=== PATIENT | male | born 2000 | race Caucasian/White ===

== ENCOUNTER 2019-01-23 | Inpatient (IN) ==
[2019-01-23] MEDS ORDERED: Mag Hydrox/Al Hydrox/Simeth 30 ML UDC PO PRN (02:19)
[2019-01-23] MEDS ORDERED: MOM Conc 10 ML UD.LIQ PO PRN (02:19)
[2019-01-23] MEDS ORDERED: traZODone 50 MG TABLET PO PRN (02:19)
[2019-01-23] MEDS ORDERED: Haloperidol Lactate 5 MG/ML VIAL IM PRN (02:19)
[2019-01-23] MEDS ORDERED: *HR* LORazepam 2 MG/ML VIAL IM PRN (02:19)
[2019-01-23] MEDS ORDERED: *HR* LORazepam 1 MG TABLET PO PRN (02:19)
[2019-01-23] MEDS ORDERED: Ibuprofen 400 MG TABLET PO PRN (02:46)
[2019-01-23] MEDS: Nicotine 14 MG PATCH.TD24 TD SCH (09:35)
[2019-01-23] MEDS: QUEtiapine Fumarate 25 MG TABLET PO SCH ×3 (10:17→21:04)
[2019-01-23] MEDS ORDERED: tiZANidine 4 MG TABLET PO SCH (21:00)
[2019-01-24] MEDS: QUEtiapine Fumarate 25 MG TABLET PO SCH (08:22)
[2019-01-24] MEDS: Nicotine 14 MG PATCH.TD24 TD SCH (08:22)
[2019-01-24 09:37] VITALS: BP 106/65
== END 2019-01-24 12:05 | disposition home or self-care (01) | DRG 817 ==
LOC: EMEROOARM → 1ANU 02:04
PROVIDERS: ADMIT Psychiatry & Neurology Psychiatry; ATTEND Psychiatry & Neurology Psychiatry

== ENCOUNTER 2020-06-14 17:47 | Observation (INO) ==
[2020-06-14] MEDS ORDERED: Naloxone 0.4 MG/ML INJ IVP PRN (19:30)
[2020-06-14] MEDS ORDERED: Ondansetron 4 MG/2 ML VIAL IVP PRN (19:30)
[2020-06-14] MEDS ORDERED: 0.9 % Sodium Chloride 1,000 ML IVC SCH (19:30)
[2020-06-15 05:41] LABS: Hematocrit 43.4 % (37.5-50.1); Hemoglobin 14.7 g/dL (12.9-16.9); Mean Corpuscular HGB Conc 33.9 g/dL (31.6-35.5); Mean Corpuscular Volume 85.6 fL (83.0-100.0); Mean Platelet Volume 9.8 fL (9.4-12.4); Platelet Count 272 K/mcL (140-400); Red Blood Count 5.07 M/mcL (4.19-5.50); Red Cell Distribution Width 12.9 % (11.5-14.5); White Blood Count 8.7 K/mcL (4.3-11.1)
[2020-06-15 06:05] LABS: BUN/Creatinine Ratio 19 (6-26); Blood Urea Nitrogen 22 mg/dL (6-20); Calcium 9.4 mg/dL (8.6-10.3); Carbon Dioxide 24 mEq/L (23-29); Chloride 107 mEq/L (98-107); Glucose 107 mg/dL (70-105); Osmolality,Calculated 294 (280-300); Potassium 3.8 mEq/L (3.5-5.1); Sodium 140 mEq/L (136-145); eGFR For African Americans > 60 (> 60); eGFR For Non-African Americans > 60 (> 60)
[2020-06-15] MEDS ORDERED: Ketorolac 15 MG/ML VIAL IVP ONE (06:20)
[2020-06-15 14:54] LABS: BUN/Creatinine Ratio 18 (6-26); Blood Urea Nitrogen 20 mg/dL (6-20); Calcium 9.5 mg/dL (8.6-10.3); Carbon Dioxide 26 mEq/L (23-29); Chloride 105 mEq/L (98-107); Glucose 132 mg/dL (70-105); Osmolality,Calculated 292 (280-300); Potassium 3.6 mEq/L (3.5-5.1); Sodium 139 mEq/L (136-145); eGFR For African Americans > 60 (> 60); eGFR For Non-African Americans > 60 (> 60)
[2020-06-15] MEDS ORDERED: Acetaminophen 325 MG TABLET PO ONE (15:00)
[2020-06-15 16:52] VITALS: BP 139/79
== END 2020-06-15 16:58 ==
LOC: 3BNU
PROVIDERS: ADMIT Internal Medicine; ATTEND Internal Medicine

== ENCOUNTER 2020-06-15 16:48 | Observation (INO) ==
[2020-06-15] MEDS ORDERED: haloperidoL 5 MG TABLET PO PRN (16:57)
[2020-06-15] MEDS ORDERED: Mag Hydrox/Al Hydrox/Simeth 30 ML UDC PO PRN (16:57)
[2020-06-15] MEDS ORDERED: MOM Conc 10 ML UD.LIQ PO PRN (16:57)
[2020-06-15] MEDS ORDERED: traZODone 50 MG TABLET PO PRN (16:57)
[2020-06-15] MEDS ORDERED: Haloperidol Lactate 5 MG/ML VIAL IM PRN (16:57)
[2020-06-15] MEDS ORDERED: *HR* LORazepam 2 MG/ML VIAL IM PRN (16:57)
[2020-06-15] MEDS ORDERED: Nicotine 2 MG GUM BC PRN (16:57)
[2020-06-15] MEDS ORDERED: Acetaminophen 325 MG TABLET PO PRN (16:57)
[2020-06-15] MEDS ORDERED: *HR* LORazepam 1 MG TABLET PO PRN (16:57)
[2020-06-16] MEDS ORDERED: tiZANidine 4 MG TABLET PO SCH (21:00)
[2020-06-16] MEDS ORDERED: QUEtiapine Fumarate 25 MG TABLET PO SCH (21:00)
[2020-06-17 09:08] VITALS: BP 119/78
== END 2020-06-17 18:35 | disposition home or self-care (01) ==
LOC: 1ANU 16:48 → INTOOBSV 16:48
PROVIDERS: ADMIT Psychiatry & Neurology Forensic Psychiatry; ATTEND Psychiatry & Neurology Forensic Psychiatry

== ENCOUNTER 2020-10-19 16:02 | Inpatient (IN) ==
[2020-10-19 17:21] LABS: Bilirubin,Urine Negative (Negative); Blood,Urine Negative (Negative); Clarity,Urine Clear (Clear); Color,Urine Yellow (Yellow); Glucose,Urine (UA) >=1000 mg/dL (Normal); Ketones,Urine Negative (Negative); Leukocyte Esterase,Urine Negative (Negative); Mucus,Urine Few per lpf (None-Few); Nitrite,Urine Negative (Negative); PH,Urine 5.5 pH Units (5.0-8.0); Protein,Urine Trace mg/dL (Neg-Trace); RBC,Urine 0-3 per hpf (0-3); Specific Gravity,Urine > 1.030 (1.010-1.025); Squamous Epithelial Cell,Urine Few per hpf (None-Few); Urobilinogen,Urine Normal (Normal); WBC,Urine 0-3 per hpf (0-3)
[2020-10-19 17:30] LABS: Amphetamine Screen,Urine Negative ng/mL (Cutoff=1000); Barbiturate Screen,Urine Negative ng/mL (Cutoff=200); Benzodiazepines Screen,Urine Negative ng/mL (Cutoff=200); Cannabinoid Screen,Urine Negative ng/mL (Cutoff = 50); Cocaine Screen,Urine Negative ng/mL (Cutoff= 300); Opiate Screen,Urine Negative ng/mL (Cutoff=300); Phencyclidine Screen,Urine Negative ng/mL (Cutoff=25)
[2020-10-19 17:45] LABS: Basophils % 0.6 %; Eosinophils # 0.1 K/mcL (0.0-0.6); Eosinophils % 0.7 %; Hematocrit 46.4 % (37.5-50.1); Hemoglobin 15.7 g/dL (12.9-16.9); Immature Granulocytes % 0.6 % (0-4); Lymphocytes # 1.8 K/mcL (0.6-4.6); Lymphocytes % 26.6 %; Mean Corpuscular HGB Conc 33.8 g/dL (31.6-35.5); Mean Corpuscular Hemoglobin 28.4 pg (28.0-33.3); Mean Corpuscular Volume 83.9 fL (83.0-100.0); Monocytes # 0.6 K/mcL (0.0-1.3); Monocytes % 8.4 %; Neutrophils # 4.3 K/mcL (1.6-8.9); Platelet Count 309 K/mcL (140-400); Red Blood Count 5.53 M/mcL (4.19-5.50); Red Cell Distribution Width 12.4 % (11.5-14.5); Segmented Neutrophils % 63.1 %; White Blood Count 6.8 K/mcL (4.3-11.1)
[2020-10-19 18:12] LABS: Acetaminophen < 10 mcg/mL (10-20); BUN/Creatinine Ratio 24 (6-26); Blood Urea Nitrogen 17 mg/dL (6-20); Calcium 9.8 mg/dL (8.6-10.3); Carbon Dioxide 24 mEq/L (23-29); Chloride 100 mEq/L (98-107); Ethanol < 10 mg/dL (Less than 10); Glucose 149 mg/dL (70-105); Osmolality,Calculated 286 (280-300); Salicylate < 2.5 mg/dL (15.0-30.0); Sodium 136 mEq/L (136-145); eGFR For African Americans > 60 (> 60); eGFR For Non-African Americans > 60 (> 60)
[2020-10-19 21:15] LABS: Adenovirus Not Detected (Not Detect); Bordetella Pertussis Not Detected (Not Detect); Chlamydophila pneumoniae Not Detected (Not Detect); Coronavirus 229E Not Detected (Not Detect); Coronavirus HKU1 Not Detected (Not Detect); Coronavirus NL63 Not Detected (Not Detect); Coronavirus OC43 Not Detected (Not Detect); Human Metapneumovirus Not Detected (Not Detect); Human Rhinovirus/Enterovirus Not Detected (Not Detect); Influenza A Subtype 2009 H1 Not Detected (Not Detect); Influenza B Not Detected (Not Detect); Mycoplasma pneumoniae Not Detected (Not Detect); Parainfluenza Virus 1 Not Detected (Not Detect); Parainfluenza Virus 2 Not Detected (Not Detect); Parainfluenza Virus 3 Not Detected (Not Detect); Parainfluenza Virus 4 Not Detected (Not Detect); Respiratory Syncytial Virus Not Detected (Not Detect)
[2020-10-19] MEDS ORDERED: MOM Conc 10 ML UD.LIQ PO PRN (22:03)
[2020-10-19] MEDS ORDERED: *HR* LORazepam 2 MG/ML VIAL IM PRN (22:03)
[2020-10-19] MEDS ORDERED: Acetaminophen 325 MG TABLET PO PRN (22:03)
[2020-10-19] MEDS ORDERED: hydrOXYzine pamoate 25 MG CAPSULE PO PRN (22:03)
[2020-10-19] MEDS ORDERED: Mag Hydrox/Al Hydrox/Simeth 30 ML UDC PO PRN (22:03)
[2020-10-19] MEDS ORDERED: haloperidoL 5 MG TABLET PO PRN (22:03)
[2020-10-19] MEDS ORDERED: Ibuprofen 400 MG TABLET PO PRN (22:03)
[2020-10-19] MEDS ORDERED: Haloperidol Lactate 5 MG/ML VIAL IM PRN (22:03)
[2020-10-19] MEDS ORDERED: traZODone 50 MG TABLET PO PRN (22:03)
[2020-10-19] MEDS ORDERED: *HR* LORazepam 1 MG TABLET PO PRN (22:03)
[2020-10-19] MEDS ORDERED: Nicotine 2 MG GUM BC PRN (22:03)
[2020-10-19] MEDS ORDERED: traZODone 50 MG TABLET PO SCH (22:30)
[2020-10-19] MEDS: Melatonin 3 MG TABLET PO SCH (23:10)
[2020-10-20] MEDS ORDERED: Nicotine 21 MG PATCH.TD24 TD SCH (09:00)
[2020-10-20] MEDS ORDERED: cephALEXin 500 MG CAPSULE PO SCH (13:45)
[2020-10-20] MEDS: Melatonin 3 MG TABLET PO SCH (20:38)
[2020-10-20] MEDS ORDERED: QUEtiapine Fumarate 25 MG TABLET PO SCH (21:00)
[2020-10-20] MEDS ORDERED: traZODone 50 MG TABLET PO SCH (21:00)
[2020-10-20] MEDS ORDERED: tiZANidine 4 MG TABLET PO SCH (21:00)
[2020-10-20] MEDS ORDERED: Melatonin 3 MG TABLET PO SCH (21:00)
[2020-10-21 09:08] VITALS: BP 128/83
== END 2020-10-21 11:45 | disposition home or self-care (01) | DRG 751 ==
LOC: EMEROOARM 16:02 → 1ANU 21:49
PROVIDERS: ADMIT Psychiatry & Neurology Forensic Psychiatry; ATTEND Psychiatry & Neurology Forensic Psychiatry

== ENCOUNTER 2021-06-28 15:52 | Observation (INO) ==
[2021-06-28 15:57] VITALS: O2SAT 93
[2021-06-28 16:32] LABS: Basophils % 0.4 %; Eosinophils % 0.6 %; Hematocrit 43.9 % (37.5-50.1); Hemoglobin 15.3 g/dL (12.9-16.9); Immature Granulocytes % 0.3 % (0-4); Lymphocytes # 1.3 K/mcL (0.6-4.6); Lymphocytes % 18.6 %; Mean Corpuscular HGB Conc 34.9 g/dL (31.6-35.5); Mean Corpuscular Hemoglobin 28.9 pg (28.0-33.3); Mean Platelet Volume 10.3 fL (9.4-12.4); Monocytes # 0.6 K/mcL (0.0-1.3); Monocytes % 8.6 %; Neutrophils # 4.9 K/mcL (1.6-8.9); Platelet Count 277 K/mcL (140-400); Red Blood Count 5.29 M/mcL (4.19-5.50); Red Cell Distribution Width 12.7 % (11.5-14.5); Segmented Neutrophils % 71.5 %; White Blood Count 6.9 K/mcL (4.3-11.1)
[2021-06-28 16:38] LABS: Bilirubin,Urine Negative (Negative); Blood,Urine Negative (Negative); Clarity,Urine Clear (Clear); Color,Urine Light-Yellow (Yellow); Glucose,Urine (UA) >=1000 mg/dL (Normal); Ketones,Urine Negative (Negative); Leukocyte Esterase,Urine Negative (Negative); Nitrite,Urine Negative (Negative); Protein,Urine Negative (Neg-Trace); RBC,Urine 0-3 per hpf (0-3); Specific Gravity,Urine > 1.030 (1.010-1.025); Squamous Epithelial Cell,Urine Few per hpf (None-Few); Urobilinogen,Urine Normal (Normal); WBC,Urine 0-3 per hpf (0-3)
[2021-06-28 16:50] LABS: Amphetamine Screen,Urine Negative ng/mL (Cutoff=1000); Barbiturate Screen,Urine Negative ng/mL (Cutoff=200); Benzodiazepines Screen,Urine Negative ng/mL (Cutoff=200); Cannabinoid Screen,Urine Negative ng/mL (Cutoff = 50); Cocaine Screen,Urine Negative ng/mL (Cutoff= 300); Opiate Screen,Urine Negative ng/mL (Cutoff=300); Phencyclidine Screen,Urine Negative ng/mL (Cutoff=25)
[2021-06-28 17:08] LABS: Acetaminophen < 10 mcg/mL (10-20); BUN/Creatinine Ratio 12 (6-26); Blood Urea Nitrogen 12 mg/dL (6-20); Calcium 9.7 mg/dL (8.6-10.3); Carbon Dioxide 24 mEq/L (23-29); Chloride 96 mEq/L (98-107); Chol/HDL Ratio 12.3 (0-4.9); Cholesterol 344 mg/dL (< 200); Glucose 284 mg/dL (70-105); HDL Cholesterol 28 mg/dL (40-59); Osmolality,Calculated 282 (280-300); Potassium 3.6 mEq/L (3.5-5.1); Salicylate < 2.5 mg/dL (15.0-30.0); Sodium 131 mEq/L (136-145); Triglycerides 2496 mg/dL (< 150); eGFR For African Americans > 60 (> 60); eGFR For Non-African Americans > 60 (> 60)
[2021-06-28 18:02] LABS: Ethanol < 10 mg/dL (Less than 10)
[2021-06-28 18:06] LABS: Estimated Average Glucose 246 mg/dl; Hemoglobin A1C 10.2 %
[2021-06-28 20:12] LABS: Influenza A PCR Negative (Negative); Influenza B PCR Negative (Negative); Resp. Syncytial Virus PCR Negative (Negative)
[2021-06-28 20:26] LABS: SARS-CoV-2 by PCR (In House) Negative (Negative)
[2021-06-28] MEDS ORDERED: Haloperidol Lactate 5 MG/ML VIAL IM PRN (20:36)
[2021-06-28] MEDS ORDERED: Ibuprofen 400 MG TABLET PO PRN (20:36)
[2021-06-28] MEDS ORDERED: haloperidoL 5 MG TABLET PO PRN (20:36)
[2021-06-28] MEDS ORDERED: Acetaminophen 325 MG TABLET PO PRN (20:36)
[2021-06-28] MEDS ORDERED: QUEtiapine Fumarate 25 MG TABLET PO PRN (20:36)
[2021-06-28] MEDS ORDERED: *HR* LORazepam 2 MG/ML VIAL IM PRN (20:36)
[2021-06-28] MEDS ORDERED: *HR* LORazepam 1 MG TABLET PO PRN (20:36)
[2021-06-28] MEDS ORDERED: QUEtiapine Fumarate 25 MG TABLET PO SCH (21:00)
[2021-06-28] MEDS ORDERED: Melatonin 3 MG TABLET PO SCH (21:00)
[2021-06-28] MEDS ORDERED: tiZANidine 4 MG TABLET PO SCH (21:00)
[2021-06-28] MEDS ORDERED: traZODone 50 MG TABLET PO SCH (21:00)
[2021-06-29 08:08] VITALS: BP 124/77; PULSE 86; TEMP 98.7
== END 2021-06-29 15:10 | disposition home or self-care (01) ==
LOC: 1ANU 15:52 → EMEROOARM 15:52 → 1ANU 21:33
PROVIDERS: ADMIT Psychiatry & Neurology Psychiatry; ATTEND Psychiatry & Neurology Psychiatry

== ENCOUNTER 2021-07-07 18:31 | Inpatient (IN) ==
[2021-07-08] MEDS ORDERED: Naloxone 0.4 MG/ML INJ IVP PRN (00:43)
[2021-07-08] MEDS ORDERED: Artificial Tears SOLN 15 ML BOTTLE BOTH EYES PRN (00:48)
[2021-07-08 00:53] LABS: ABG Base Excess 0 mEq/L (-2 to 3); ABG HCO3 27 mEq/L (21-27); ABG Oxygen Saturation 94 % (95-98); ABG PCO2 49 mmHg (35-45); ABG PH 7.34 pH Units (7.32-7.45); ABG PO2 74 mmHg (85-104); ABG TCO2 28 mEq/L (20-26); Blood Gas VT 500 cc
[2021-07-08] MEDS ORDERED: FentaNYL (PF) 1,000 MCG/100 ML IV.SOLN IVC SCH (01:00)
[2021-07-08] MEDS ORDERED: Midazolam HCl 50 MG/100 ML IV.SOLN IVC SCH (01:00)
[2021-07-08 03:44] LABS: ABG Base Excess 1 mEq/L (-2 to 3); ABG HCO3 27 mEq/L (21-27); ABG Oxygen Saturation 98 % (95-98); ABG PCO2 48 mmHg (35-45); ABG PH 7.35 pH Units (7.32-7.45); ABG PO2 110 mmHg (85-104); ABG TCO2 28 mEq/L (20-26); Blood Gas VT 500 cc
[2021-07-08] MEDS: 0.9 % Sodium Chloride 1,000 ML IVC SCH ×3 (03:47→18:54)
[2021-07-08] MEDS: Artificial Tears SOLN 15 ML BOTTLE BOTH EYES SCH ×6 (03:48→23:25)
[2021-07-08] MEDS: Pantoprazole 40 MG VIAL IVP SCH (05:37)
[2021-07-08 05:51] LABS: Basophils % 0.3 %; Eosinophils % 0.2 %; Hematocrit 42.2 % (37.5-50.1); Hemoglobin 14.2 g/dL (12.9-16.9); Immature Granulocytes % 0.5 % (0-4); Lymphocytes # 1.4 K/mcL (0.6-4.6); Lymphocytes % 13.6 %; Mean Corpuscular HGB Conc 33.6 g/dL (31.6-35.5); Mean Corpuscular Hemoglobin 28.7 pg (28.0-33.3); Mean Corpuscular Volume 85.4 fL (83.0-100.0); Mean Platelet Volume 10.1 fL (9.4-12.4); Monocytes # 0.8 K/mcL (0.0-1.3); Monocytes % 7.8 %; Neutrophils # 8.2 K/mcL (1.6-8.9); Platelet Count 281 K/mcL (140-400); Red Blood Count 4.94 M/mcL (4.19-5.50); Red Cell Distribution Width 13.3 % (11.5-14.5); Segmented Neutrophils % 77.6 %; White Blood Count 10.6 K/mcL (4.3-11.1)
[2021-07-08] MEDS ORDERED: *HR* Enoxaparin 30 MG/0.3 ML SYRINGE SQ SCH (06:00)
[2021-07-08 06:15] LABS: Alanine Aminotransferase 162 Units/L (7-52); Albumin/Globulin Ratio 1.4 (1.1-2.2); Alkaline Phosphatase 86 Units/L (34-104); Aspartate Amino Transferase 86 Units/L (13-39); BUN/Creatinine Ratio 13 (6-26); Bilirubin,Direct 0.1 mg/dL (0.0-0.2); Bilirubin,Indirect 0.5 mg/dL (0.0-1.0); Bilirubin,Total 0.6 mg/dL (0.3-1.0); Blood Urea Nitrogen 10 mg/dL (6-20); Calcium 8.9 mg/dL (8.6-10.3); Carbon Dioxide 25 mEq/L (23-29); Chloride 101 mEq/L (98-107); Globulin 2.8 g/dL (2.4-3.5); Glucose 179 mg/dL (70-105); Magnesium 1.5 mg/dL (1.6-2.6); Osmolality,Calculated 284 (280-300); Potassium 3.9 mEq/L (3.5-5.1); Sodium 135 mEq/L (136-145); Total Protein 6.8 g/dL (6.4-8.9); eGFR For African Americans > 60 (> 60); eGFR For Non-African Americans > 60 (> 60)
[2021-07-08] MEDS: Chlorhexidine Rinse 15 ML MOUTHWASH MM SCH ×2 (07:43→18:53)
[2021-07-08] MEDS: *HR* LORazepam 2 MG/ML VIAL IVP PRN ×2 (13:53→22:00)
[2021-07-08] MEDS: Dexmedetomidine HCl 400 MCG/100 ML MLS IVC SCH (20:56)
[2021-07-09] MEDS: Artificial Tears SOLN 15 ML BOTTLE BOTH EYES SCH ×3 (03:08→12:15)
[2021-07-09] MEDS: *HR* Enoxaparin 40 MG/0.4 ML SYRINGE SQ SCH (05:31)
[2021-07-09] MEDS: Dexmedetomidine HCl 400 MCG/100 ML MLS IVC SCH (05:31)
[2021-07-09] MEDS: Pantoprazole 40 MG VIAL IVP SCH (05:31)
[2021-07-09] MEDS: Chlorhexidine Rinse 15 ML MOUTHWASH MM SCH (10:25)
[2021-07-09] MEDS: 0.9 % Sodium Chloride 1,000 ML IVC SCH ×2 (10:27→20:44)
[2021-07-09] MEDS ORDERED: Acetaminophen 325 MG TABLET PO PRN (10:53)
[2021-07-09 11:51] LABS: Basophils % 0.3 %; Eosinophils % 0.4 %; Hematocrit 40.1 % (37.5-50.1); Hemoglobin 13.9 g/dL (12.9-16.9); Immature Granulocytes % 0.6 % (0-4); Lymphocytes # 1.3 K/mcL (0.6-4.6); Lymphocytes % 12.4 %; Mean Corpuscular HGB Conc 34.7 g/dL (31.6-35.5); Mean Corpuscular Hemoglobin 28.7 pg (28.0-33.3); Mean Corpuscular Volume 82.9 fL (83.0-100.0); Monocytes % 9.2 %; Neutrophils # 8.4 K/mcL (1.6-8.9); Platelet Count 220 K/mcL (140-400); Red Blood Count 4.84 M/mcL (4.19-5.50); Red Cell Distribution Width 12.8 % (11.5-14.5); Segmented Neutrophils % 77.1 %; White Blood Count 10.8 K/mcL (4.3-11.1)
[2021-07-09 11:53] LABS: VBG Ionized Calcium 1.11 mmol/L (1.15-1.35)
[2021-07-09 13:14] LABS: Alanine Aminotransferase 104 Units/L (7-52); Albumin/Globulin Ratio 1.1 (1.1-2.2); Alkaline Phosphatase 88 Units/L (34-104); Aspartate Amino Transferase 42 Units/L (13-39); BUN/Creatinine Ratio 14 (6-26); Bilirubin,Direct 0.2 mg/dL (0.0-0.2); Bilirubin,Total 1.2 mg/dL (0.3-1.0); Blood Urea Nitrogen 9 mg/dL (6-20); Calcium 9.2 mg/dL (8.6-10.3); Carbon Dioxide 28 mEq/L (23-29); Chloride 98 mEq/L (98-107); Globulin 3.6 g/dL (2.4-3.5); Glucose 179 mg/dL (70-105); Magnesium 1.5 mg/dL (1.6-2.6); Osmolality,Calculated 281 (280-300); Phosphorous 3.1 mg/dL (2.7-4.5); Potassium 3.5 mEq/L (3.5-5.1); Sodium 134 mEq/L (136-145); Total Protein 7.6 g/dL (6.4-8.9); eGFR For African Americans > 60 (> 60); eGFR For Non-African Americans > 60 (> 60)
[2021-07-09] MEDS ORDERED: QUEtiapine Fumarate 25 MG TABLET PO SCH (21:00)
[2021-07-09] MEDS ORDERED: Divalproex (12 HR) 500 MG TABLET PO SCH (21:00)
[2021-07-10] MEDS: *HR* Enoxaparin 40 MG/0.4 ML SYRINGE SQ SCH (05:20)
[2021-07-10] MEDS: 0.9 % Sodium Chloride 1,000 ML IVC SCH ×2 (05:21→14:50)
[2021-07-10 11:23] VITALS: BP 136/80; PULSE 80; TEMP 98.1; O2SAT 93
[2021-07-10 12:59] LABS: Influenza A PCR Negative (Negative); Influenza B PCR Negative (Negative); Resp. Syncytial Virus PCR Negative (Negative); SARS-CoV-2 by PCR (In House) Negative (Negative)
== END 2021-07-10 15:33 | DRG 918 ==
LOC: ICNU → OBSVTOIN 07-08 00:29 → 3BNU 07-09 15:26
PROVIDERS: ADMIT Pediatrics; ATTEND Pediatrics

== ENCOUNTER 2021-07-10 15:30 | Inpatient (IN) ==
[2021-07-10] MEDS ORDERED: Haloperidol Lactate 5 MG/ML VIAL IM PRN (15:38)
[2021-07-10] MEDS ORDERED: Acetaminophen 325 MG TABLET PO PRN (15:38)
[2021-07-10] MEDS ORDERED: haloperidoL 5 MG TABLET PO PRN (15:38)
[2021-07-10] MEDS ORDERED: *HR* LORazepam 1 MG TABLET PO PRN (15:51)
[2021-07-10] MEDS ORDERED: *HR* LORazepam 2 MG/ML VIAL IM PRN (15:51)
[2021-07-10] MEDS ORDERED: Divalproex (12 HR) 500 MG TABLET PO SCH (21:00)
[2021-07-10] MEDS: QUEtiapine Fumarate 25 MG TABLET PO SCH (21:18)
[2021-07-10] MEDS: Melatonin 3 MG TABLET PO SCH (21:18)
[2021-07-11] MEDS ORDERED: Mag Hydrox/Al Hydrox/Simeth 30 ML UDC PO PRN (11:39)
[2021-07-11] MEDS ORDERED: MOM Conc 10 ML UD.LIQ PO PRN (11:39)
[2021-07-11] MEDS ORDERED: hydrOXYzine pamoate 25 MG CAPSULE PO PRN (11:39)
[2021-07-11] MEDS: Divalproex (12 HR) 500 MG TABLET PO SCH (20:28)
[2021-07-11] MEDS: QUEtiapine Fumarate 25 MG TABLET PO SCH (20:29)
[2021-07-11] MEDS: Melatonin 3 MG TABLET PO SCH (20:29)
[2021-07-12] MEDS ORDERED: traZODone 50 MG TABLET PO PRN (11:18)
[2021-07-12] MEDS: Melatonin 3 MG TABLET PO SCH (20:52)
[2021-07-12] MEDS: Divalproex (12 HR) 500 MG TABLET PO SCH (20:52)
[2021-07-12] MEDS: QUEtiapine Fumarate 25 MG TABLET PO SCH (20:52)
[2021-07-13] MEDS: Divalproex (12 HR) 500 MG TABLET PO SCH (20:22)
[2021-07-13] MEDS: Melatonin 3 MG TABLET PO SCH (20:24)
[2021-07-13] MEDS: QUEtiapine Fumarate 25 MG TABLET PO SCH (20:24)
[2021-07-14] MEDS: Melatonin 3 MG TABLET PO SCH (20:44)
[2021-07-14] MEDS: QUEtiapine Fumarate 25 MG TABLET PO SCH (20:44)
[2021-07-14] MEDS: Divalproex (12 HR) 500 MG TABLET PO SCH (20:44)
[2021-07-15 08:48] VITALS: BP 132/87; PULSE 81; TEMP 98.1; O2SAT 97
[2021-07-15] MEDS ORDERED: FLU Vac QV 21-22 (6Month+)/PF 0.5 ML SYRINGE IM ONE (14:56)
== END 2021-07-15 16:32 | disposition other institution (70) | DRG 885 ==
LOC: 1ANU 15:30
PROVIDERS: ADMIT Psychiatry & Neurology Psychiatry; ATTEND Psychiatry & Neurology Psychiatry